=== PATIENT | male | born 1980 ===

== ENCOUNTER 2018-01-26 11:39 | Emergency (ER) | payer OTHER ==
[2018-01-26] MEDS ORDERED: Sodium Chloride 0.9% 1,000 ML IV STA (13:22)
[2018-01-26 13:31] LABS: HEMOGLOBIN 15.1 g/dL (12.0-18.0); MEAN CELL VOLUME 88.6 fl (80.0-94.0); MEAN CORPUSCULAR HEMOGLOBIN 29.8 pg (27.0-31.0); MEAN CORPUSCULAR HGB CONC 33.7 g/dL (33.0-37.0); RBC 5.06 Mil/uL (4.40-5.90); RED CELL DISTRIBUTION WIDTH 14.2 % (11.5-14.5); WHITE BLOOD COUNT 4.3 K/uL (4.8-10.8)
[2018-01-26 13:32] LABS: SQUAMOUS EPITHIAL < 1 /hpf (0-5); URINE BILIRUBIN NEGATIVE (NEGATIVE); URINE BLOOD NEGATIVE (NEGATIVE); URINE CLARITY SLIGHTY-CLOUDY (Clear); URINE COLOR YELLOW (YELLOW); URINE GLUCOSE (UA) NEG (Normal); URINE LEUKOCYTE ESTERASE NEG Leu/uL (Negative); URINE PROTEIN NEGATIVE (NEGATIVE); URINE UROBILINOGEN 0.2-1.0 mg/dL (0.2-1.0)
[2018-01-26 13:42] LABS: ALB/GLOB RATIO 1.2 (1.0-2.1); ALBUMIN 4.1 g/dL (3.5-5.0); ALT/SGPT 31 U/L (21-72); AST/SGOT 29 U/L (17-59); BLOOD UREA NITROGEN 10 mg/dl (9-20); CALCIUM 9.5 mg/dL (8.4-10.2); GFR NON-AFRICAN AMERICAN > 60
--- NOTE | 2018-01-26 14:58 | ED PDOC ---
HPI: Back Time Seen by Provider: 01/26/18 12:40 Chief Complaint (Nursing): Back Pain Chief Complaint (Provider): Right flank pain History Per: Patient History/Exam Limitations: no limitations Onset/Duration Of Symptoms: Days (3) Current Symptoms Are (Timing): Still Present Additional Complaint(s): 37 yo obese male with HTn presents for evaluation of right flank pain x 3 days. Pt was seen in ER 2 days ago. Pt had cbc, cmp, troponin and abd/pelvis CT. Everything was normal. PT reports continued pain. Pt states that he took his girlfriends codeine which helped. Pt reports pain with touching the area. Past Medical History Reviewed: Historical Data, Nursing Documentation, Vital Signs Vital Signs: Last Vital Signs Temp 97.8 F 01/26/18 12:18 Pulse 84 01/26/18 12:18 Resp 18 01/26/18 12:18 BP 161/120 H 01/26/18 12:18 Pulse Ox 99 01/26/18 12:18 - Medical History PMH: HTN - Surgical History Surgical History: No Surg Hx - Family History Family History: States: No Known Family Hx - Home Medications Home Medications: Ambulatory Orders Medication Instructions Recorded Cyclobenzaprine [Cyclobenzaprine 10 mg PO Q8H #20 tab 01/26/18 HCl] Naproxen [Naprosyn] 500 mg PO BID PRN #20 tablet 01/26/18 cloNIDine [Catapres] 0.1 mg PO DAILY #14 tab 01/26/18 - Allergies Allergies/Adverse Reactions: Allergies Allergy/AdvReac Type Severity Reaction Status Date / Time No Known Allergies Allergy Verified 01/26/18 12:18 Review of Systems ROS Statement: Except As Marked, All Systems Reviewed And Found Negative Constitutional: Negative for: Fever, Chills Cardiovascular: Negative for: Chest Pain Respiratory: Negative for: Cough, Shortness of Breath Gastrointestinal: Positive for: Other ((+) right flank pain) Physical Exam - Reviewed Nursing Documentation Reviewed: Yes Vital Signs Reviewed: Yes - Physical Exam Appears: Positive for: Well, Non-toxic, No Acute Distress Head Exam: Positive for: ATRAUMATIC, NORMAL INSPECTION, NORMOCEPHALIC Skin: Positive for: Normal Color, Warm, DRY Eye Exam: Positive for: Normal appearance ENT: Positive for: Normal ENT Inspection Neck: Positive for: Normal, Painless ROM Cardiovascular/Chest: Positive for: Regular Rate, Rhythm Respiratory: Positive for: CNT, Normal Breath Sounds Gastrointestinal/Abdominal: Positive for: Normal Exam, Soft Back: Positive for: Normal Inspection, Other ((+) tenderness of the latissimus dorsi, right) Extremity: Positive for: Normal ROM Neurologic/Psych: Positive for: Alert, Oriented - Laboratory Results Result Diagrams: 01/26/18 13:15 01/26/18 13:15 - ECG O2 Sat by Pulse Oximetry: 99 Medical Decision Making Medical Decision Making: Labs normal. Pt reports feeling better on re-evaluation. Repeat BP improved with clonidine. Discussed treatment of BP with Dr. Ingram. Will send home on clonidine as advised. Disposition - Clinical Impression Clinical Impression: HTN (hypertension), Muscle pain - Patient ED Disposition Is Patient to be Admitted: No Counseled Patient/Family Regarding: Diagnosis, Need For Followup, Rx Given - Disposition Referrals: Luis Melgar MD [Staff Provider] - Disposition: Routine/Home Disposition Time: 17:02 Condition: STABLE Prescriptions: cloNIDine [Catapres] 0.1 mg PO DAILY #14 tab Cyclobenzaprine [Cyclobenzaprine HCl] 10 mg PO Q8H #20 tab Naproxen [Naprosyn] 500 mg PO BID PRN #20 tablet PRN Reason: Pain Instructions: High Blood Pressure in Adults Forms: [facility] (Bulgarian)
--- NOTE | 2018-01-26 15:21 | RAD ---
Date of service: 01/26/2018 HISTORY: right flank pain COMPARISON: No prior. TECHNIQUE: Chest PA and lateral FINDINGS: LUNGS: No active pulmonary disease. PLEURA: No significant pleural effusion identified. No pneumothorax apparent. CARDIOVASCULAR: Normal. OSSEOUS STRUCTURES: No significant abnormalities. VISUALIZED UPPER ABDOMEN: Normal. OTHER FINDINGS: None. IMPRESSION: No active disease.
[2018-01-26 17:43] VITALS: RESP 19
[2018-01-26 17:53] VITALS: BP 150/96; PULSE 78; TEMP 97; O2SAT 98
== END 2018-01-26 17:54 | disposition home or self-care (01) ==
LOC: H.ER 11:39
DX: R10.9 Unspecified abdominal pain (principal); M62.830 Muscle spasm of back; I10 Essential (primary) hypertension; E66.9 Obesity, unspecified
CPT/HCPCS: 71046; 80053; 81003; 82550; 85027; 87086; 96374; 99283; J1885; J7030